=== PATIENT | female | born 1975 | race Caucasian/White ===

== ENCOUNTER 2023-03-24 11:07 | Day surgery (SDC) | payer OTHER ==
[2023-03-23 09:08] VITALS: BMI 22.3
[2023-03-24] MEDS ORDERED: PROPOFOL 40 ML ONE (12:15)
[2023-03-24] MEDS ORDERED: GLYCOPYRROLATE 0.2 MG/1 ML VIAL ONE (12:15)
[2023-03-24 12:58] VITALS: TEMP 97.8
[2023-03-24 13:21] VITALS: BP 109/64; PULSE 64; RESP 18
== END 2023-03-24 13:45 | disposition home or self-care (01) ==
LOC: FASU-ENDO 11:07
PROVIDERS: ATTEND Internal Medicine Gastroenterology
PROC: 0DJD8ZZ Inspection of Lower Intestinal Tract, Via Natural or Artificial Opening Endoscopic (ICD-10-PCS; principal; 2023-03-24 12:27)
DX: Z12.11 Encounter for screening for malignant neoplasm of colon (principal); K64.1 Second degree hemorrhoids; K64.8 Other hemorrhoids
CPT/HCPCS: 81025